=== PATIENT | female | born 1940 | race Caucasian/White ===

== ENCOUNTER 2021-12-17 14:13 | Inpatient (IN) | payer MEDICARE, OTHER ==
[2021-12-17] MEDS ORDERED: Polyethylene Glycol 3350 17 GM Packet PO PRN (17:21)
[2021-12-17] MEDS ORDERED: Dextrose 50% Abboject 50 ML SYRINGE SLOW IVP PRN (17:22)
[2021-12-17] MEDS ORDERED: Ondansetron ODT 4 MG TAB PO PRN (17:22)
[2021-12-17] MEDS ORDERED: HumaLOG 300 UNITS/3 ML VIAL SC PRN (17:22)
[2021-12-17] MEDS ORDERED: Senokot S 8.6-50 MG TAB PO PRN (17:22)
[2021-12-17] MEDS: Atorvastatin Calcium 40 MG TAB PO SCH (21:57)
[2021-12-17] MEDS: Temazepam 15 MG CAP PO PRN (21:57)
[2021-12-18 08:23] LABS: #Basophils 0.1 thou/uL (0.0-0.2); #Eosinphils 0.6 thou/uL (0.0-0.7); #Lymphocytes 1.6 thou/uL (1.20-3.40); #Monocytes 0.6 thou/uL (0.11-0.59); %Eosinophils 7.7 % (0.0-10.0); %Lymphocytes 20.6 % (21.0-51.0); %Monocytes 7.9 % (0.0-10.0); %Neutrophils 62.8 % (42.0-75.0); Hemoglobin 10.8 g/dL (12.0-16.0); Mean Corpuscular HGB CONC 30.6 g/dL (32.0-36.0); Mean Corpuscular Hemoglobin 27.9 pg (27.0-31.0); Mean Corpuscular Volume 91.2 fL (78.0-98.0); Mean Platelet Volume 9.7 fL (7.4-10.4); Platelet Count 188 thou/uL (130-400); RBC Distribution Width 13.6 % (11.5-14.5); Red Blood Cell (RBC) Count 3.87 mill/uL (4.20-5.40); White Blood Cell (WBC) Count 7.9 thou/uL (4.8-10.8)
[2021-12-18 08:37] LABS: ALT (SGPT) 14 U/L (8-55); AST (SGOT) 18 U/L (5-34); Alkaline Phosphatase 41 U/L (40-110); Anion Gap 14 mmol/L (10-20); BUN (Urea Nitrogen) 19 mg/dL (9.8-20.1); Bilirubin, Total 0.6 mg/dL (0.2-1.2); Calc. Creatinine Clearance 60 mL/min (70-130); Calcium 9.2 mg/dL (7.8-10.44); Carbon Dioxide 25 mmol/L (23-31); Chloride 107 mmol/L (98-107); Estimated GFR 86; Glucose 99 mg/dL (83-110); Potassium 3.6 mmol/L (3.5-5.1); Sodium 142 mmol/L (136-145)
[2021-12-18] MEDS: Amlodipine 10 MG TAB PO SCH (09:14)
[2021-12-18] MEDS: Clopidogrel Bisulfate 75 MG TAB PO SCH (09:14)
[2021-12-18] MEDS: Ezetimibe 10 MG TAB PO SCH (09:14)
[2021-12-18] MEDS: metFORMIN 500 MG TAB PO SCH ×3 (09:14→18:53)
[2021-12-18] MEDS: Losartan Potassium 50 MG TAB PO SCH (09:14)
[2021-12-18] MEDS: Enoxaparin Sodium 40 MG/0.4 ML SYRINGE SC SCH (09:14)
[2021-12-18] MEDS: Aspirin 81 mg Enteric Coated Tablet PO SCH (09:16)
[2021-12-18] MEDS ORDERED: hydrALAZINE 25 MG TAB PO PRN (13:09)
[2021-12-18] MEDS: Atorvastatin Calcium 40 MG TAB PO SCH (20:26)
[2021-12-18] MEDS: Temazepam 15 MG CAP PO PRN (20:26)
[2021-12-19] MEDS: Enoxaparin Sodium 40 MG/0.4 ML SYRINGE SC SCH (09:15)
[2021-12-19] MEDS: Aspirin 81 mg Enteric Coated Tablet PO SCH (09:15)
[2021-12-19] MEDS: Clopidogrel Bisulfate 75 MG TAB PO SCH (09:15)
[2021-12-19] MEDS: metFORMIN 500 MG TAB PO SCH ×2 (09:15→17:05)
[2021-12-19] MEDS: Losartan Potassium 50 MG TAB PO SCH (09:16)
[2021-12-19] MEDS: Ezetimibe 10 MG TAB PO SCH (09:16)
[2021-12-19] MEDS: Amlodipine 10 MG TAB PO SCH (09:17)
[2021-12-19] MEDS: Atorvastatin Calcium 40 MG TAB PO SCH (20:57)
[2021-12-20] MEDS: Clopidogrel Bisulfate 75 MG TAB PO SCH (08:46)
[2021-12-20] MEDS: Enoxaparin Sodium 40 MG/0.4 ML SYRINGE SC SCH (08:46)
[2021-12-20] MEDS: Losartan Potassium 50 MG TAB PO SCH (08:46)
[2021-12-20] MEDS: metFORMIN 500 MG TAB PO SCH ×2 (08:47→16:15)
[2021-12-20] MEDS: Ezetimibe 10 MG TAB PO SCH (08:47)
[2021-12-20] MEDS: Amlodipine 10 MG TAB PO SCH (08:48)
[2021-12-20] MEDS: Aspirin 81 mg Enteric Coated Tablet PO SCH (08:52)
[2021-12-20] MEDS: Atorvastatin Calcium 40 MG TAB PO SCH (20:29)
[2021-12-21] MEDS: Aspirin 81 mg Enteric Coated Tablet PO SCH (08:00)
[2021-12-21] MEDS: Enoxaparin Sodium 40 MG/0.4 ML SYRINGE SC SCH (08:00)
[2021-12-21] MEDS: Clopidogrel Bisulfate 75 MG TAB PO SCH (08:01)
[2021-12-21] MEDS: Amlodipine 10 MG TAB PO SCH (08:01)
[2021-12-21] MEDS: metFORMIN 500 MG TAB PO SCH ×2 (08:01→17:16)
[2021-12-21] MEDS: Losartan Potassium 50 MG TAB PO SCH (08:01)
[2021-12-21] MEDS: Ezetimibe 10 MG TAB PO SCH (08:01)
[2021-12-21] MEDS ORDERED: Haloperidol 5 MG TAB PO SCH (12:30)
[2021-12-21] MEDS: Acetaminophen 325 MG TAB PO PRN (20:25)
[2021-12-21] MEDS: Atorvastatin Calcium 40 MG TAB PO SCH (20:25)
[2021-12-21] MEDS: Haloperidol 5 MG TAB PO SCH (20:25)
[2021-12-22 06:00] LABS: #Basophils 0.1 thou/uL (0.0-0.2); #Eosinphils 0.5 thou/uL (0.0-0.7); #Lymphocytes 1.9 thou/uL (1.20-3.40); #Monocytes 0.6 thou/uL (0.11-0.59); #Neutrophils 7.3 thou/uL (1.40-6.50); %Basophils 1.3 % (0.0-1.0); %Eosinophils 4.5 % (0.0-10.0); %Lymphocytes 18.4 % (21.0-51.0); %Monocytes 5.3 % (0.0-10.0); %Neutrophils 70.5 % (42.0-75.0); Hemoglobin 10.4 g/dL (12.0-16.0); Mean Corpuscular HGB CONC 31.2 g/dL (32.0-36.0); Mean Corpuscular Hemoglobin 28.3 pg (27.0-31.0); Mean Corpuscular Volume 90.5 fL (78.0-98.0); Mean Platelet Volume 8.3 fL (7.4-10.4); Platelet Count 143 thou/uL (130-400); RBC Distribution Width 13.6 % (11.5-14.5); White Blood Cell (WBC) Count 10.3 thou/uL (4.8-10.8)
[2021-12-22 06:14] LABS: Anion Gap 17 mmol/L (10-20); BUN (Urea Nitrogen) 21 mg/dL (9.8-20.1); Calc. Creatinine Clearance 47 mL/min (70-130); Calcium 9.6 mg/dL (7.8-10.44); Carbon Dioxide 25 mmol/L (23-31); Chloride 108 mmol/L (98-107); Estimated GFR 65; Glucose 86 mg/dL (83-110); Potassium 3.5 mmol/L (3.5-5.1); Sodium 146 mmol/L (136-145)
[2021-12-22] MEDS: Ezetimibe 10 MG TAB PO SCH (08:58)
[2021-12-22] MEDS: Haloperidol 5 MG TAB PO SCH ×2 (08:58→20:09)
[2021-12-22] MEDS: Enoxaparin Sodium 40 MG/0.4 ML SYRINGE SC SCH (08:58)
[2021-12-22] MEDS: Losartan Potassium 50 MG TAB PO SCH (08:58)
[2021-12-22] MEDS: Clopidogrel Bisulfate 75 MG TAB PO SCH (08:58)
[2021-12-22] MEDS: metFORMIN 500 MG TAB PO SCH ×2 (08:59→16:44)
[2021-12-22] MEDS: Amlodipine 10 MG TAB PO SCH (08:59)
[2021-12-22] MEDS: Aspirin 81 mg Enteric Coated Tablet PO SCH (08:59)
[2021-12-22] MEDS: HumaLOG 300 UNITS/3 ML VIAL SC PRN (16:55)
[2021-12-22] MEDS: Acetaminophen 325 MG TAB PO PRN (20:08)
[2021-12-22] MEDS: Atorvastatin Calcium 40 MG TAB PO SCH (20:09)
[2021-12-23] MEDS: Haloperidol 5 MG TAB PO SCH ×2 (08:23→20:33)
[2021-12-23] MEDS: Clopidogrel Bisulfate 75 MG TAB PO SCH (08:23)
[2021-12-23] MEDS: metFORMIN 500 MG TAB PO SCH ×2 (08:23→17:08)
[2021-12-23] MEDS: Ezetimibe 10 MG TAB PO SCH (08:23)
[2021-12-23] MEDS: Losartan Potassium 50 MG TAB PO SCH (08:24)
[2021-12-23] MEDS: Amlodipine 10 MG TAB PO SCH (08:25)
[2021-12-23] MEDS: Enoxaparin Sodium 40 MG/0.4 ML SYRINGE SC SCH (08:25)
[2021-12-23] MEDS: Aspirin 81 mg Enteric Coated Tablet PO SCH (08:28)
[2021-12-23] MEDS: Atorvastatin Calcium 40 MG TAB PO SCH (20:33)
[2021-12-24 06:17] LABS: Anion Gap 13 mmol/L (10-20); BUN (Urea Nitrogen) 22 mg/dL (9.8-20.1); Calc. Creatinine Clearance 48 mL/min (70-130); Calcium 9.2 mg/dL (7.8-10.44); Carbon Dioxide 27 mmol/L (23-31); Chloride 105 mmol/L (98-107); Estimated GFR 68; Glucose 95 mg/dL (83-110); Potassium 3.3 mmol/L (3.5-5.1); Sodium 142 mmol/L (136-145)
[2021-12-24] MEDS: Aspirin 81 mg Enteric Coated Tablet PO SCH (08:33)
[2021-12-24] MEDS: Losartan Potassium 50 MG TAB PO SCH (08:33)
[2021-12-24] MEDS: Haloperidol 5 MG TAB PO SCH ×2 (08:34→21:23)
[2021-12-24] MEDS: Enoxaparin Sodium 40 MG/0.4 ML SYRINGE SC SCH (08:34)
[2021-12-24] MEDS: Amlodipine 10 MG TAB PO SCH (08:34)
[2021-12-24] MEDS: Clopidogrel Bisulfate 75 MG TAB PO SCH (08:34)
[2021-12-24] MEDS: metFORMIN 500 MG TAB PO SCH ×2 (08:34→16:34)
[2021-12-24] MEDS: Ezetimibe 10 MG TAB PO SCH (08:35)
[2021-12-24] MEDS: Atorvastatin Calcium 40 MG TAB PO SCH (21:23)
[2021-12-25] MEDS: Enoxaparin Sodium 40 MG/0.4 ML SYRINGE SC SCH (08:49)
[2021-12-25] MEDS: Losartan Potassium 50 MG TAB PO SCH (08:50)
[2021-12-25] MEDS: Aspirin 81 mg Enteric Coated Tablet PO SCH (08:50)
[2021-12-25] MEDS: Amlodipine 10 MG TAB PO SCH (08:51)
[2021-12-25] MEDS: Clopidogrel Bisulfate 75 MG TAB PO SCH (08:51)
[2021-12-25] MEDS: metFORMIN 500 MG TAB PO SCH ×2 (08:51→17:47)
[2021-12-25] MEDS: Haloperidol 5 MG TAB PO SCH ×2 (08:52→21:12)
[2021-12-25] MEDS: Ezetimibe 10 MG TAB PO SCH (08:52)
[2021-12-25] MEDS: Atorvastatin Calcium 40 MG TAB PO SCH (21:12)
[2021-12-26] MEDS: Clopidogrel Bisulfate 75 MG TAB PO SCH (08:12)
[2021-12-26] MEDS: Enoxaparin Sodium 40 MG/0.4 ML SYRINGE SC SCH (08:12)
[2021-12-26] MEDS: metFORMIN 500 MG TAB PO SCH ×2 (08:12→16:22)
[2021-12-26] MEDS: Haloperidol 5 MG TAB PO SCH ×2 (08:13→20:40)
[2021-12-26] MEDS: Aspirin 81 mg Enteric Coated Tablet PO SCH (08:13)
[2021-12-26] MEDS: Ezetimibe 10 MG TAB PO SCH (08:13)
[2021-12-26] MEDS: Amlodipine 10 MG TAB PO SCH (08:55)
[2021-12-26] MEDS: Losartan Potassium 50 MG TAB PO SCH (08:56)
[2021-12-26] MEDS: Atorvastatin Calcium 40 MG TAB PO SCH (20:40)
[2021-12-27] MEDS: Amlodipine 10 MG TAB PO SCH (08:14)
[2021-12-27] MEDS: Clopidogrel Bisulfate 75 MG TAB PO SCH (08:14)
[2021-12-27] MEDS: Aspirin 81 mg Enteric Coated Tablet PO SCH (08:14)
[2021-12-27] MEDS: Enoxaparin Sodium 40 MG/0.4 ML SYRINGE SC SCH (08:14)
[2021-12-27] MEDS: Ezetimibe 10 MG TAB PO SCH (08:14)
[2021-12-27] MEDS: Losartan Potassium 50 MG TAB PO SCH (08:14)
[2021-12-27] MEDS: Haloperidol 5 MG TAB PO SCH ×2 (08:14→20:15)
[2021-12-27] MEDS: metFORMIN 500 MG TAB PO SCH (08:15)
[2021-12-27] MEDS: Atorvastatin Calcium 40 MG TAB PO SCH (20:14)
[2021-12-28 06:31] LABS: Bilirubin Small (Negative); Blood, Urine Moderate (Negative); Clarity Clear (Clear); Glucose, Urine (Dipstick) Negative (Negative); Ketone, Urine Trace mg/dL (Negative); Leukocyte Large (Negative); Nitrite Negative (Negative); Protein, Urine (Dipstick) Trace mg/dL (Neg-Trace); Urobilinogen 0.2 mg/dL (Less than 2); pH, Urine 5.5 (5.0-9.0)
[2021-12-28 06:37] LABS: Bacteria/HPF 2+ HPF (None Seen); Yeast-Budding 2+ HPF (None Seen)
[2021-12-28 06:38] LABS: Crystals/HPF 1+ ACID URATES HPF (Negative)
[2021-12-28 06:39] LABS: Triple Phosphate Crystal 1+ HPF (None Seen)
[2021-12-28 07:22] LABS: Hemoglobin 7.3 g/dL (12.0-16.0); Mean Corpuscular HGB CONC 30.6 g/dL (32.0-36.0); Mean Corpuscular Hemoglobin 28.8 pg (27.0-31.0); Mean Corpuscular Volume 94.2 fL (78.0-98.0); Mean Platelet Volume 10.1 fL (7.4-10.4); Platelet Count 163 thou/uL (130-400); RBC Distribution Width 15.9 % (11.5-14.5); Red Blood Cell (RBC) Count 2.53 mill/uL (4.20-5.40)
[2021-12-28 07:36] LABS: ALT (SGPT) 15 U/L (8-55); AST (SGOT) 22 U/L (5-34); Albumin 3.5 g/dL (3.4-4.8); Alkaline Phosphatase 42 U/L (40-110); Anion Gap 16 mmol/L (10-20); BUN (Urea Nitrogen) 30 mg/dL (9.8-20.1); Bilirubin, Total 0.5 mg/dL (0.2-1.2); Calc. Creatinine Clearance 51 mL/min (70-130); Calcium 9.4 mg/dL (7.8-10.44); Carbon Dioxide 28 mmol/L (23-31); Chloride 105 mmol/L (98-107); Estimated GFR 73; Globulin 2.1 g/dL (2.4-3.5); Glucose 123 mg/dL (83-110); Magnesium 1.5 mg/dL (1.6-2.6); Potassium 3.5 mmol/L (3.5-5.1); Protein, Total 5.6 g/dL (5.8-8.1); Sodium 145 mmol/L (136-145)
[2021-12-28] MEDS: Losartan Potassium 50 MG TAB PO SCH (08:49)
[2021-12-28] MEDS: Ezetimibe 10 MG TAB PO SCH (08:50)
[2021-12-28] MEDS: metFORMIN 500 MG TAB PO SCH (08:50)
[2021-12-28] MEDS: Haloperidol 1 MG TAB PO SCH (08:50)
[2021-12-28] MEDS: Amlodipine 5 MG TAB PO SCH (08:51)
[2021-12-28] MEDS: Clopidogrel Bisulfate 75 MG TAB PO SCH (08:51)
[2021-12-28] MEDS: Aspirin 81 mg Enteric Coated Tablet PO SCH (08:51)
[2021-12-28] MEDS: Enoxaparin Sodium 40 MG/0.4 ML SYRINGE SC SCH (08:52)
[2021-12-28] MEDS: HumaLOG 300 UNITS/3 ML VIAL SC PRN (11:36)
[2021-12-28] MEDS: Haloperidol 5 MG TAB PO SCH (20:30)
[2021-12-28] MEDS: Atorvastatin Calcium 40 MG TAB PO SCH (20:30)
[2021-12-28 20:50] VITALS: BMI 20.2
[2021-12-29] MEDS: Haloperidol 1 MG TAB PO SCH (08:11)
[2021-12-29] MEDS: Ezetimibe 10 MG TAB PO SCH (08:12)
[2021-12-29] MEDS: Amlodipine 5 MG TAB PO SCH (08:12)
[2021-12-29] MEDS: Clopidogrel Bisulfate 75 MG TAB PO SCH (08:12)
[2021-12-29] MEDS: Enoxaparin Sodium 40 MG/0.4 ML SYRINGE SC SCH (08:12)
[2021-12-29] MEDS: metFORMIN 500 MG TAB PO SCH (08:12)
[2021-12-29] MEDS: Aspirin 81 mg Enteric Coated Tablet PO SCH (08:12)
[2021-12-29] MEDS: Losartan Potassium 50 MG TAB PO SCH (08:12)
[2021-12-29 09:02] LABS: #Basophils 0.1 thou/uL (0.0-0.2); #Eosinphils 0.1 thou/uL (0.0-0.7); #Lymphocytes 1.5 thou/uL (1.20-3.40); #Monocytes 0.6 thou/uL (0.11-0.59); #Neutrophils 6.3 thou/uL (1.40-6.50); %Basophils 0.8 % (0.0-1.0); %Eosinophils 0.7 % (0.0-10.0); %Lymphocytes 17.2 % (21.0-51.0); %Monocytes 6.8 % (0.0-10.0); %Neutrophils 74.4 % (42.0-75.0); Hemoglobin 7.9 g/dL (12.0-16.0); Mean Corpuscular HGB CONC 30.3 g/dL (32.0-36.0); Mean Corpuscular Hemoglobin 28.5 pg (27.0-31.0); Mean Platelet Volume 9.3 fL (7.4-10.4); Platelet Count 212 thou/uL (130-400); RBC Distribution Width 17.2 % (11.5-14.5); Red Blood Cell (RBC) Count 2.77 mill/uL (4.20-5.40); White Blood Cell (WBC) Count 8.4 thou/uL (4.8-10.8)
[2021-12-29] MEDS ORDERED: Ciprofloxacin 500 MG TAB PO SCH ×2 (09:30→20:00)
[2021-12-29 16:38] LABS: Iron 28 ug/dL (50-170); Iron Binding Capacity, Total 271 mcg/dL (265-497)
[2021-12-29 17:02] LABS: Ferritin 31.13 ng/mL (10-291)
[2021-12-29] MEDS: Atorvastatin Calcium 40 MG TAB PO SCH (20:40)
[2021-12-29] MEDS: Cipro 250 MG TAB PO SCH (20:40)
[2021-12-29] MEDS: Haloperidol 5 MG TAB PO SCH (20:40)
[2021-12-30] MEDS: Cipro 250 MG TAB PO SCH ×2 (05:05→20:46)
[2021-12-30] MEDS: Clopidogrel Bisulfate 75 MG TAB PO SCH (07:54)
[2021-12-30] MEDS: metFORMIN 500 MG TAB PO SCH (07:54)
[2021-12-30] MEDS: Haloperidol 1 MG TAB PO SCH (07:54)
[2021-12-30] MEDS: Ezetimibe 10 MG TAB PO SCH (07:54)
[2021-12-30] MEDS: Aspirin 81 mg Enteric Coated Tablet PO SCH (07:54)
[2021-12-30] MEDS: Amlodipine 5 MG TAB PO SCH (07:55)
[2021-12-30] MEDS: Losartan Potassium 50 MG TAB PO SCH (07:55)
[2021-12-30] MEDS: Enoxaparin Sodium 40 MG/0.4 ML SYRINGE SC SCH (07:55)
[2021-12-30] MEDS ORDERED: Sodium Chloride 0.9% 1,000 ML IV SCH (10:00)
[2021-12-30] MEDS: Acetaminophen 325 MG TAB PO PRN (17:43)
[2021-12-30] MEDS: Atorvastatin Calcium 40 MG TAB PO SCH (20:46)
[2021-12-30] MEDS: Haloperidol 5 MG TAB PO SCH (20:46)
[2021-12-31] MEDS: Cipro 250 MG TAB PO SCH (05:48)
[2021-12-31 07:38] VITALS: BP 96/57; TEMP 99.2
[2021-12-31] MEDS: Losartan Potassium 50 MG TAB PO SCH (08:49)
[2021-12-31] MEDS: Ezetimibe 10 MG TAB PO SCH (08:50)
[2021-12-31] MEDS: Aspirin 81 mg Enteric Coated Tablet PO SCH (08:50)
[2021-12-31] MEDS: metFORMIN 500 MG TAB PO SCH (08:50)
[2021-12-31] MEDS: Haloperidol 1 MG TAB PO SCH (08:50)
[2021-12-31] MEDS: Clopidogrel Bisulfate 75 MG TAB PO SCH (08:50)
[2021-12-31] MEDS: Amlodipine 5 MG TAB PO SCH (08:50)
[2021-12-31] MEDS: Enoxaparin Sodium 40 MG/0.4 ML SYRINGE SC SCH (08:52)
== END 2021-12-31 15:35 | disposition hospice, home (50) | DRG 56 ==
LOC: NAV ACUTE 15:04
PROVIDERS: ADMIT Family Medicine; ATTEND Family Medicine
DX: I69.398 Other sequelae of cerebral infarction (principal); J96.01 Acute respiratory failure with hypoxia; F84.0 Autistic disorder; I50.32 Chronic diastolic (congestive) heart failure; F01.51 Vascular dementia, unspecified severity, with behavioral disturbance; E87.0 Hyperosmolality and hypernatremia; R53.81 Other malaise; Z20.822 Contact with and (suspected) exposure to COVID-19; Z51.5 Encounter for palliative care; I25.10 Atherosclerotic heart disease of native coronary artery without angina pectoris; E11.9 Type 2 diabetes mellitus without complications; Z66 Do not resuscitate; E78.5 Hyperlipidemia, unspecified; R13.10 Dysphagia, unspecified; J44.9 Chronic obstructive pulmonary disease, unspecified; I95.9 Hypotension, unspecified; F48.2 Pseudobulbar affect; I11.0 Hypertensive heart disease with heart failure; I65.23 Occlusion and stenosis of bilateral carotid arteries; D50.9 Iron deficiency anemia, unspecified; R33.9 Retention of urine, unspecified; R45.1 Restlessness and agitation; D69.6 Thrombocytopenia, unspecified; Z86.16 Personal history of COVID-19; Z95.1 Presence of aortocoronary bypass graft; Z95.2 Presence of prosthetic heart valve; Z87.891 Personal history of nicotine dependence; Z83.3 Family history of diabetes mellitus; Z82.49 Family history of ischemic heart disease and other diseases of the circulatory system; Z79.82 Long term (current) use of aspirin; Z79.02 Long term (current) use of antithrombotics/antiplatelets; Z79.84 Long term (current) use of oral hypoglycemic drugs; Z79.899 Other long term (current) drug therapy; Z88.2 Allergy status to sulfonamides; Z88.8 Allergy status to other drugs, medicaments and biological substances; I69.391 Dysphagia following cerebral infarction
CPT/HCPCS: 36415; 36416; 80048; 80053; 81001; 82607; 82728; 82746; 83540; 83550; 83735; 84134; 85025; 85027; J1650; J1815